=== PATIENT | male | born 1975 | race African-American/Black ===

== ENCOUNTER 2019-04-16 02:34 | Inpatient (IN) | payer BC, SELFPAY ==
[2019-04-16] MEDS ORDERED: Dextrose 5% in Water 1,000 ML IV PRN (03:07)
[2019-04-16] MEDS ORDERED: Ondansetron PF 4 MG/2 ML Vial IVP PRN (03:07)
[2019-04-16] MEDS ORDERED: Dextrose 50% Abboject 50 ML SYRINGE SLOW IVP PRN (03:07)
[2019-04-16] MEDS ORDERED: Morphine 2 MG/ML SYRINGE SLOW IVP PRN (03:07)
[2019-04-16] MEDS ORDERED: Ondansetron ODT 4 MG TAB PO PRN (03:07)
[2019-04-16] MEDS ORDERED: hydrALAZINE 20 MG/ML VIAL SLOW IVP PRN (03:07)
[2019-04-16] MEDS ORDERED: traMADol HCl 50 MG TAB PO PRN (03:12)
[2019-04-16] MEDS ORDERED: Cyclobenzaprine 10 MG TAB PO PRN (03:13)
[2019-04-16 03:42] VITALS: BMI 21.2
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
[2019-04-16] MEDS: Acetaminophen 500 MG TAB PO SCH ×4 (05:29→23:32)
[2019-04-16] MEDS: Oxazepam 10 MG CAP PO SCH ×3 (05:29→21:35)
[2019-04-16] MEDS: Sodium Chloride 0.9% 1,000 ML IV SCH ×2 (05:29→20:04)
[2019-04-16] MEDS: Ibuprofen 600 MG TAB PO SCH ×3 (05:29→21:35)
[2019-04-16] MEDS: traMADol HCl 50 MG TAB PO SCH ×4 (05:29→23:32)
[2019-04-16 05:34] LABS: #Monocytes 0.4 thou/uL (0.11-0.59); #Neutrophils 4.9 thou/uL (1.40-6.50); %Basophils 0.7 % (0.0-1.0); %Eosinophils 0.1 % (0.0-10.0); %Lymphocytes 15.9 % (21.0-51.0); %Monocytes 5.5 % (0.0-10.0); %Neutrophils 77.8 % (42.0-75.0); Hemoglobin 14.1 g/dL (14.0-18.0); Mean Corpuscular HGB CONC 33.4 g/dL (32.0-36.0); Mean Corpuscular Hemoglobin 28.5 pg (27.0-31.0); Mean Corpuscular Volume 85.5 fL (78.0-98.0); Mean Platelet Volume 7.6 fL (7.4-10.4); Platelet Count 187 thou/uL (130-400); RBC Distribution Width 10.9 % (11.5-14.5); Red Blood Cell (RBC) Count 4.96 mill/uL (4.70-6.10); White Blood Cell (WBC) Count 6.4 thou/uL (4.8-10.8)
[2019-04-16 05:54] LABS: Anion Gap 13 mmol/L (10-20); BUN (Urea Nitrogen) 9 mg/dL (8.9-20.6); Calc. Creatinine Clearance 117 mL/min (70-130); Calcium 8.6 mg/dL (7.8-10.44); Carbon Dioxide 23 mmol/L (22-29); Chloride 108 mmol/L (98-107); Estimated GFR-MDRD Greater than 90; Glucose 102 mg/dL (70-105); Potassium 4.2 mmol/L (3.5-5.1); Sodium 140 mmol/L (136-145)
[2019-04-16] MEDS ORDERED: TETANUS AND DIPHTHERIA TOX/PF 0.5 ML DISP.SYRIN IM ONE (06:00)
[2019-04-16] MEDS: Gabapentin 300 MG CAP PO SCH ×3 (08:50→20:07)
[2019-04-16] MEDS: Polyethylene Glycol 3350 17 GM Packet PO SCH (08:50)
[2019-04-16] MEDS: Thiamine 100 MG TAB PO SCH (08:50)
[2019-04-16] MEDS: Folic Acid/Vit B Comp W-C PO SCH (08:50)
[2019-04-16] MEDS: Senokot S 8.6-50 MG TAB PO SCH ×2 (08:50→20:06)
[2019-04-16] MEDS ORDERED: FLU VACC QS2019-20(6MOS UP)/PF 60 MCG/0.5 ML SYRINGE IM ONE (09:00)
--- NOTE | 2019-04-16 09:12 | RAD ---
PORTABLE UPRIGHT FRONTAL CHEST RADIOGRAPH: 04/16/2019 HISTORY: Chest tube. COMPARISON: None, FINDINGS: Subcutaneous gas is seen and the left chest is in place. Nodular opacity is seen within the left uppe r lobe region, just superior to the chest tube, measuring approximately 9 mm. This may represent a 9 mm nodule within the left upper lobe versus artifact. No discrete pneumothorax. No focal consolidatio n or alveolar edema. IMPRESSION: Left chest tube in place. Questionable small nodule in the left upper lobe region. POS: [facility]
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
[2019-04-16] MEDS: Enoxaparin Sodium 30 MG/0.3 ML SYRINGE SC SCH (20:07)
--- NOTE | 2019-04-17 03:10 | PRG ---
DATE OF SERVICE: 04/16/2019 SUBJECTIVE: The patient was seen during evening rounds, resting comfortably. The patient's chest tube remains to water-seal at this time. The patient's nurse reports that he is tolerating a regular diet. His pain has been well controlled. PLAN: Continue regular diet. Continue pain management. Repeat chest x-ray tomorrow morning. Job ID: [id number]
[2019-04-17] MEDS: Ibuprofen 600 MG TAB PO SCH ×3 (06:23→21:07)
[2019-04-17] MEDS: Acetaminophen 500 MG TAB PO SCH ×4 (06:23→23:30)
[2019-04-17] MEDS: Oxazepam 10 MG CAP PO SCH ×3 (06:23→21:07)
[2019-04-17] MEDS: traMADol HCl 50 MG TAB PO SCH ×4 (06:24→23:29)
[2019-04-17] MEDS: Folic Acid/Vit B Comp W-C PO SCH (06:26)
[2019-04-17] MEDS: Polyethylene Glycol 3350 17 GM Packet PO SCH (08:30)
[2019-04-17] MEDS: Thiamine 100 MG TAB PO SCH (08:31)
[2019-04-17] MEDS: Senokot S 8.6-50 MG TAB PO SCH ×2 (08:31→21:07)
[2019-04-17] MEDS: Enoxaparin Sodium 30 MG/0.3 ML SYRINGE SC SCH ×2 (08:31→21:08)
[2019-04-17] MEDS: Gabapentin 300 MG CAP PO SCH ×3 (08:31→21:07)
--- NOTE | 2019-04-17 09:33 | RAD ---
EXAM: Portable chest PROVIDED CLINICAL HISTORY: Chest tube COMPARISON: 04/16/2019 FINDINGS: Significant interval change with respect to the prior examination is not apparent. IMPRESSION: As above.
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
--- NOTE | 2019-04-17 14:03 | RAD ---
EXAM: XR Chest 1 View Portable PROVIDED CLINICAL HISTORY: Chest tube removal COMPARISON: Earlier same date FINDINGS: There is a small left apical pneumothorax. Blunting of both costophrenic angles is again demonstrated . Cardiac and mediastinal silhouette is unchanged in appearance. Left-sided chest tube has been removed. IMPRESSION: Small left apical pneumothorax.
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
[2019-04-18] MEDS: Acetaminophen 500 MG TAB PO SCH ×2 (06:38→11:52)
[2019-04-18] MEDS: Oxazepam 10 MG CAP PO SCH (06:38)
[2019-04-18] MEDS: Ibuprofen 600 MG TAB PO SCH (06:38)
[2019-04-18] MEDS: traMADol HCl 50 MG TAB PO SCH ×2 (06:38→11:52)
[2019-04-18] MEDS: Folic Acid/Vit B Comp W-C PO SCH (06:39)
[2019-04-18] MEDS: Senokot S 8.6-50 MG TAB PO SCH (08:02)
[2019-04-18] MEDS: Polyethylene Glycol 3350 17 GM Packet PO SCH (08:03)
[2019-04-18] MEDS: Gabapentin 300 MG CAP PO SCH (08:03)
[2019-04-18] MEDS: Thiamine 100 MG TAB PO SCH (08:03)
[2019-04-18] MEDS: Enoxaparin Sodium 30 MG/0.3 ML SYRINGE SC SCH (08:03)
--- NOTE | 2019-04-18 08:40 | RAD ---
FRONTAL RADIOGRPAH CHEST: DATE: 04/18/2019. COMPARISON: 04/17/2019. HISTORY: Removal of left-sided chest tube. FINDINGS: Small volume subcutaneous gas is noted in the left chest wall in the subclavian and scapular regions. No definitive pneumothorax is appreciated on either side. No focal consolidation or alveolar edema . Heart and mediastinal contours are grossly unremarkable. IMPRESSION: Left chest tube removal. Small volume subcutaneous gas on the left. No discrete pneumothorax. POS: [facility]
[2019-04-18 11:56] VITALS: BP 132/82; TEMP 98
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
== END 2019-04-18 12:22 | disposition home or self-care (01) | DRG 200 ==
LOC: SURG B 02:34
PROVIDERS: ADMIT Surgery; ATTEND Surgery
PROC: 0W9B30Z Drainage of Left Pleural Cavity with Drainage Device, Percutaneous Approach (ICD-10-PCS; principal; 2019-04-16)
PROC: 0HQ5XZZ Repair Chest Skin, External Approach (ICD-10-PCS; 2019-04-16)
DX: S27.0XXA Traumatic pneumothorax, initial encounter (principal); S21.112A Laceration without foreign body of left front wall of thorax without penetration into thoracic cavity, initial encounter; F17.210 Nicotine dependence, cigarettes, uncomplicated; S00.81XA Abrasion of other part of head, initial encounter; X99.8XXA Assault by other sharp object, initial encounter; F10.129 Alcohol abuse with intoxication, unspecified; Y90.7 Blood alcohol level of 200-239 mg/100 ml
CPT/HCPCS: 36415; 71045; 80048; 85025; J1650

== ENCOUNTER 2022-11-15 10:45 | Emergency (ER) | payer BC, SELFPAY ==
[2022-11-15] MEDS ORDERED: Dexamethasone 10 MG/ML VIAL ONE (11:07)
[2022-11-15] MEDS ORDERED: Ketorolac Tromethamine 30 MG/ML VIAL ONE (11:07)
== END 2022-11-15 13:47 | disposition home or self-care (01) ==
LOC: ERS 10:45
DX: M54.42 Lumbago with sciatica, left side (principal); I10 Essential (primary) hypertension; F17.210 Nicotine dependence, cigarettes, uncomplicated; Z79.899 Other long term (current) drug therapy
CPT/HCPCS: 96372; 99283; J1100; J1885